=== PATIENT | female | born 1935 | race Caucasian/White ===

== ENCOUNTER 2019-01-22 09:15 | Inpatient (IN) | payer OTHER, MEDICARE ==
[~2019-01-22] VITALS: Ht 162.6 cm; Wt 84.8 kg
--- NOTE | 2019-01-22 09:15 | NUR ---
PATIENT BIBA TO BED 8 AT THIS TIME.
[2019-01-22 09:17] VITALS: BP 72/33
--- NOTE | 2019-01-22 09:18 | NUR ---
83 yo f biba care from home [facility] for fall. per pt, she was on the toilet and when she stood up, she felt light-headed and fell onto her right knee. denies hitting head/loc. pt w/ active GI bleed, still taking warfarin. pt pale and jaundiced. aaox4. hypotension, 72/. md notified. hx cardiac, htn, copd, a-fib, RT breast ca rx no med list given, only one received in report is warfarin
[2019-01-22] MEDS ORDERED: NACL 0.9% 1,000 ML IV SCH ×2 (09:54→12:30)
[2019-01-22 10:24] LABS: MEAN CORPUSCULAR HEMOGLOBIN 27 pg (27-31); MEAN CORPUSCULAR HGB CONC 31 g/dL (33-37); MEAN CORPUSCULAR VOLUME 85.3 fL (80-94); PLATELET COUNT (AUTO) 255 K/uL (140-450); RED CELL DISTRIBUTION WIDTH 15.1 % (11.6-13.7)
[2019-01-22] MEDS ORDERED: POTA8TER12 PO (10:25)
[2019-01-22] MEDS ORDERED: WARF1TAB PO (10:26)
[2019-01-22] MEDS ORDERED: SYN.1 PO (10:29)
[2019-01-22] MEDS ORDERED: METO50TE2 PO (10:30)
[2019-01-22] MEDS ORDERED: RAMI5CAP32 PO (10:31)
[2019-01-22] MEDS ORDERED: FURO-570 PO (10:33)
[2019-01-22] MEDS ORDERED: CARER90 PO (10:35)
[2019-01-22 10:38] LABS: APPEARANCE,URINE SL CLOUDY (CLEAR); BILIRUBIN,URINE 1+ (NEGATIVE); BLOOD, URINE 2+ (NEGATIVE); COLOR,URINE YELLOW (YELLOW); LEUKOCYTE ESTERASE ,URINE 1+ (NEGATIVE); NITRITE, URINE NEGATIVE (NEGATIVE); PH,URINE 5.5 (5.0-9.0); UGLUCOSE NEGATIVE (NEGATIVE)
[2019-01-22 10:45] LABS: ALBUMIN 2.2 g/dL (3.4-5.0); ANION GAP 8.4 (8-16); ASPARTATE AMINOTRANSFERASE 26 U/L (15-37); CARBON DIOXIDE 33.8 mmol/L (21-32); CHLORIDE 97 mmol/L (98-107); CREATININE 1.7 mg/dL (0.6-1.3); GLUCOSE 137 mg/dL (74-106); POTASSIUM 4.2 mmol/L (3.5-5.1); SODIUM SERUM 135 mmol/L (136-145); TOTAL BILIRUBIN 0.2 mg/dL (0.0-1.0)
[2019-01-22 10:47] LABS: UREA NITROGEN, BLOOD 89 mg/dL (7-18)
[2019-01-22 10:49] LABS: WHITE BLOOD COUNT (AUTO) 43.4 K/uL (4.8-10.8)
[2019-01-22 10:50] LABS: HEMATOCRIT 15.3 % (36-48); HEMOGLOBIN 4.8 g/dL (12.0-16.0)
[2019-01-22] MEDS ORDERED: LEVOFLOXACIN 500 MG TAB PO ONE (10:50)
[2019-01-22 10:54] LABS: HYALINE CASTS, URINE 0-10 /LPF (None Seen); URINE AMORPHOUS URATE 2+ /HPF (None Seen)
[2019-01-22 10:54] LABS: LYMPHOCYTES % (MANUAL) 2 % (20-46); METAMYELOCYTES % 3 % (0-0); MONOCYTES % (MANUAL) 8 % (5-12)
[2019-01-22 11:01] LABS: PROTHROMBIN TIME > 120.0 secs (10.8-13.4)
[2019-01-22] MEDS ORDERED: PHYTONADIONE 10 MG/ML AMP SUBQ ONE (11:10)
[2019-01-22] MEDS ORDERED: PHYTONADIONE 10 MG in NACL 0.9% 50 ML IV ONE (11:15)
[2019-01-22] MEDS ORDERED: ONDANSETRON 4 MG/2 ML VIAL IM/IVP PRN (11:55)
[2019-01-22] MEDS ORDERED: PIPERACILLIN/TAZOBACTAM 2.25 GM VIAL IV ONE (12:11)
[2019-01-22] MEDS ORDERED: PIPER/TAZO 2.25GM/D5W PREMIX 50 ML IV SCH ×2 (12:15→13:00)
[2019-01-22] MEDS ORDERED: DILTIAZEM 25 MG/5 ML VIAL IVP PRN (12:15)
[2019-01-22] MEDS ORDERED: PANTOPRAZOLE 80 MG in NACL 0.9% 100 ML IV SCH ×2 (12:15→12:30)
[2019-01-22] MEDS ORDERED: OCTREOTIDE ACETATE 1.25 MG in NACL 0.9% 250 ML IV SCH (12:30)
--- NOTE | 2019-01-22 12:40 | NUR ---
ADMITTED PT FROM ER BY MARK, PT PALE, AWAKE, ALERT. ON O2 NC 6L/MIN, O2 SATS 90%-95%. BEDSIDE MONITOR SHOWS SR, PT HYPOTENSIVE. ON 0.9% NS 1000 AT OPEN WIDE TO LEFT AC # 20 . INTACT AND PATENT. SKIN INTACT, DR. NOLAND AT BEDSIDE TO CHECK PT. PT C/O CHEST TIGHTNESS. HOB ELEVATED 30 DEGREES WITH LOW BED POSITION. CALL LIGHT IN REACH, WILL CONTINUE TO MONITOR.
--- NOTE | 2019-01-22 12:40 | NUR ---
Patient will be admitted to care of Dr Garcia. Admited to ICU 8. Report to ERIN Andrade.
[2019-01-22] MEDS ORDERED: [UNRECOGNIZED DRUG - CODE] PO (13:20)
[2019-01-22 13:22] LABS: MAGNESIUM 2.1 mg/dL (1.8-2.4); PHOSPHORUS 3.7 mg/dL (2.5-4.9); THYROID STIMULATING HORMONE 0.36 uIU/mL (0.34-3.74)
[2019-01-22] MEDS: metroNIDAZOLE 500 MG/NS PREMIX 100 ML IV SCH ×2 (13:45→20:30)
[2019-01-22 14:00] VITALS: BP 89/30
[2019-01-22] MEDS ORDERED: Z-GUARD PASTE TP SCH (14:00)
[2019-01-22] MEDS: DEXT 5% /NACL 0.9% 1,000 ML IV SCH (14:15)
[2019-01-22] MEDS ORDERED: ALBUTEROL SULFATE/IPRATROPIU 3 ML SOL IH PRN (14:20)
--- NOTE | 2019-01-22 15:00 | NUR ---
STARTED FRESH FROZEN PLASMA TRANSFUSION , NO REACTION NOTED. DETAILS SEE BLOOD TRANSFUSION RECORD.
[2019-01-22 16:10] VITALS: BP 85/58
--- NOTE | 2019-01-22 16:12 | NUR ---
DOUBLE CHECKED WITH IS IT OK TO PUT IV TO RIGHT ARM. STATED IT IS FINE. CHARGE NURSE MADE AWARE.
[2019-01-22 16:23] LABS: MEAN CORPUSCULAR HEMOGLOBIN 27 pg (27-31); MEAN CORPUSCULAR HGB CONC 32 g/dL (33-37); PLATELET COUNT (AUTO) 233 K/uL (140-450); RED BLOOD CELL COUNT(AUTO) 1.76 MIL/uL (4.20-5.40); RED CELL DISTRIBUTION WIDTH 14.7 % (11.6-13.7)
[2019-01-22 16:31] LABS: HEMATOCRIT 14.9 % (36-48); HEMOGLOBIN 4.7 g/dL (12.0-16.0); WHITE BLOOD COUNT (AUTO) 50.1 K/uL (4.8-10.8)
[2019-01-22 17:24] LABS: LYMPHOCYTES % (MANUAL) 2 % (20-46)
[2019-01-22 17:25] LABS: MONOCYTES % (MANUAL) 4 % (5-12); PROMYELOCYTES % 2 % (0-0)
[2019-01-22 17:41] VITALS: BP 101/56
[2019-01-22] MEDS: SENNA 8.6 MG TAB PO SCH (18:35)
--- NOTE | 2019-01-22 19:15 | NUR ---
RED BLOOD CELLS AND FRESH FROZEN PLASMA 2 UNITS GIVEN IN MY SHIFT. DETAILS SEE RECORD. HANGED THE SECOND BAG RED BLOOD CELLS AT 1815, TRANSFUSION STILL IN PROCESS, NO REACTION NOTED, REPORT GIVEN TO PM NURSE. VITALS STABLE AT THIS TIME. PT AWAKE,. ALERT.
--- NOTE | 2019-01-22 19:30 | NUR ---
RECEIVED BEDSIDE REPORT FROM MORNING SHIFT NURSE. PT IS AAOX4, FOLLOW COMMANDS AND ABLE TO MAKE NEEDS KNOWN. SINUS RHYTHM ON MONITOR, S1 S2 HEARD. PT IS ON O2 AT 2 LPM/NC. LUNG SOUNDS CLEAR BILATERALLY. BREATHING EVEN AND UNLABORED. DENIES SOB OR CHEST PAIN. ABDOMEN SOFT, NONDISTENDED, NONTENDER W/ ACTIVE BOWEL SOUNDS. PERIPHERAL IVS G20 TO LEFT AND RIGHT AC AND G22 TO LEFT HAND ASYMPTOMATIC, PATENT AND INTACT. PT RECEIVING IVF D5NS AT 10ML/HR. AMAYA CATH IN PLACE DRAINING CLEAR YELLOW URINE TO GRAVITY DRAINAGE BAG. SKIN INTACT, DRY AND WARM TO TOUCH. AFEBRILE, DENIES PAIN. HOB ELEVATED 30 DEGREES, BED IN LOWEST POSITION LOCKED AND CALL LIGHT WITHIN REACH. NEEDS WELL ATTENDED. NO ACUTE DISTRESS NOTED. WILL CONTINUE TO MONITOR.
[2019-01-22 20:00] VITALS: BP 90/35
--- NOTE | 2019-01-22 20:10 | NUR ---
BLOOD TRANSFUSION COMPLETED. NO ADVERSE REACTIONS NOTED. WILL CONTINUE TO MONITOR.
[2019-01-22] MEDS: PANTOPRAZOLE 40 MG INJ VIAL IVP SCH (20:30)
[2019-01-22] MEDS: ACETAMINOPHEN 325 MG TAB PO PRN (20:30)
--- NOTE | 2019-01-22 20:50 | NUR ---
MEDICATIONS ADMINISTERED ORDERED. PT TOLERATED WELL.
[2019-01-22 22:00] VITALS: BP 91/41
[2019-01-22] MEDS: IPRATROPIUM 0.02% 0.5 MG/2.5 ML NEBU INH PRN (22:36)
[2019-01-22 22:43] LABS: MEAN CORPUSCULAR HEMOGLOBIN 28 pg (27-31); MEAN CORPUSCULAR HGB CONC 32 g/dL (33-37); MEAN CORPUSCULAR VOLUME 85.8 fL (80-94); PLATELET COUNT (AUTO) 176 K/uL (140-450); RED BLOOD CELL COUNT(AUTO) 2.34 MIL/uL (4.20-5.40); RED CELL DISTRIBUTION WIDTH 14.6 % (11.6-13.7)
[2019-01-22 22:54] LABS: PROTHROMBIN TIME 13.8 secs (10.8-13.4)
[2019-01-22 23:22] LABS: HEMATOCRIT 20.1 % (36-48); HEMOGLOBIN 6.5 g/dL (12.0-16.0); WHITE BLOOD COUNT (AUTO) 39.4 K/uL (4.8-10.8)
[2019-01-22 23:23] LABS: LYMPHOCYTES % (MANUAL) 5 % (20-46); METAMYELOCYTES % 2 % (0-0); MONOCYTES % (MANUAL) 5 % (5-12)
[2019-01-23] VITALS (12 sets, daily range): BP systolic 92–136; BP diastolic 40–61
[2019-01-23] MEDS ORDERED: FUROSEMIDE 20 MG TAB PO SCH
--- NOTE | 2019-01-23 00:05 | NUR ---
BENADRYL ADMINISTERED ORDERED. TYLENOL NOT GIVEN. DR. OZUNA AWARE.
--- NOTE | 2019-01-23 00:16 | NUR ---
THIRD UNIT OF PRBC STARTED. PT'S VITAL SIGNS STABLE AT THIS TIME. AFEBRILE. WILL CONTINUE TO MONITOR.
--- NOTE | 2019-01-23 01:50 | NUR ---
BLOOD TRANSFUSION COMPLETED. PT IS AFEBRILE, VSS. NO ADVERSE REACTION NOTED. WILL CONTINUE TO MONITOR.
[2019-01-23] MEDS: ACETAMINOPHEN 325 MG TAB PO PRN ×2 (02:31→09:49)
[2019-01-23] MEDS: ACETAMINOPHEN 325 MG TAB PO SCH ×2 (03:59)
--- NOTE | 2019-01-23 04:00 | NUR ---
BENADRYL AND TYLENOL NOT GIVEN AT THIS TIME. DR. OZUNA AWARE.
[2019-01-23] MEDS: metroNIDAZOLE 500 MG/NS PREMIX 100 ML IV SCH ×3 (05:11→20:24)
[2019-01-23] MEDS: LEVOTHYROXINE 0.1 MG TAB PO SCH (05:39)
--- NOTE | 2019-01-23 06:08 | NUR ---
CLEANED AND REPOSITIONED PT. PT'S VITAL SIGNS ARE STABLE. NO ACUTE DISTRESS NOTED AT THIS TIME. SAFETY PRECAUTIONS IN PLACE. WILL CONTINUE TO MONITOR.
[2019-01-23 06:09] LABS: BASOPHILS % (AUTO) 0.1 % (0.0-2.0); EOSINOPHILS % (AUTO) 0.1 % (0.0-4.0); HEMATOCRIT 22.3 % (36-48); HEMOGLOBIN 7.3 g/dL (12.0-16.0); LYMPHOCYTES # (AUTO) 2.1 K/uL (2.5-16.5); LYMPHOCYTES % (AUTO) 6.5 % (20.5-51.1); MEAN CORPUSCULAR HEMOGLOBIN 28 pg (27-31); MEAN CORPUSCULAR HGB CONC 33 g/dL (33-37); MEAN CORPUSCULAR VOLUME 87.1 fL (80-94); MONOCYTES # (AUTO) 1.8 K/uL (0.8-1.0); MONOCYTES % (AUTO) 5.6 % (1.7-9.3); NEUTROPHILS # (AUTO) 28.6 K/uL (1.8-7.7); NEUTROPHILS % (AUTO) 87.7 % (42.2-75.2); PLATELET COUNT (AUTO) 148 K/uL (140-450); RED BLOOD CELL COUNT(AUTO) 2.55 MIL/uL (4.20-5.40); RED CELL DISTRIBUTION WIDTH 14.8 % (11.6-13.7)
--- NOTE | 2019-01-23 06:36 | NUR ---
DR. SANTIZO IN TO SEE AND EXAMINE PT. UPDATES GIVEN ON PT'S CONDITION. WILL FOLLOW UP ON ORDERS.
[2019-01-23 06:37] LABS: WHITE BLOOD COUNT (AUTO) 32.6 K/uL (4.8-10.8)
[2019-01-23 06:46] LABS: ANION GAP 6.5 (8-16); CARBON DIOXIDE 34.7 mmol/L (21-32); CHLORIDE 99 mmol/L (98-107); CREATININE 1.6 mg/dL (0.6-1.3); GLUCOSE 127 mg/dL (74-106); MAGNESIUM 2.1 mg/dL (1.8-2.4); PHOSPHORUS 3.7 mg/dL (2.5-4.9); POTASSIUM 4.2 mmol/L (3.5-5.1); SODIUM SERUM 136 mmol/L (136-145)
[2019-01-23 06:50] LABS: UREA NITROGEN, BLOOD 69 mg/dL (7-18)
[2019-01-23 06:58] LABS: PROTHROMBIN TIME 12.4 secs (10.8-13.4)
--- NOTE | 2019-01-23 07:28 | NUR ---
REPORT GIVEN TO MORNING SHIFT RN FOR CONTINUITY OF CARE. PT IS IN STABLE CONDITION.
--- NOTE | 2019-01-23 08:00 | NUR ---
PATIENT IN BED, HEAD UP 30 DEGREES, ALERT ORIENTED TO PERSON, TIME, PLACE SITUATION. ON NASAL CANNULA O2 2L/MIN. SO2 95%, ATRIAL FIBRILLATION (CHRONIC) 98BPM, SOFT ABDOMEN, NO SIGNS OF BLEEDING AT THE MOMENT, WITH AMAYA CATHETER NOTED CLEAR YELLOW URINE IN THE UROBAG, SKIN INTACT, MILD REDDISH DISCOLORATION AT RIGHT FEMORAL AREA, PERIPHERAL LINES: GAUGE 2O AT RIGHT ANTECUBITAL-D5NS 10CC/HR INFUSING, GAUGE 22 LEFT HAND-SALINE LOCKED, GAUGE 20 LEFT ANTECUBITAL-SALINE LOCKED, ALL IV SITES ASYMPTOMATIC. CALL MASON WITHIN REACH
--- NOTE | 2019-01-23 08:20 | NUR ---
ROUNDS WITH DR. RUSSELL, DR. SANTIZO. KEEP PATIENT NPO PER PHYSICIANS
[2019-01-23] MEDS: PANTOPRAZOLE 40 MG INJ VIAL IVP SCH (08:35)
[2019-01-23] MEDS: SENNA 8.6 MG TAB PO SCH ×4 (08:36→18:36)
--- NOTE | 2019-01-23 10:40 | NUR ---
DR. ROACH AT BEDSIDE
[2019-01-23] MEDS ORDERED: fentaNYL 0.05 MG/ML VIAL ONE (12:10)
[2019-01-23 12:11] LABS: FOLIC ACID 14.4 ng/mL (>3.0)
[2019-01-23] MEDS ORDERED: diphenhydrAMINE 50 MG/ML VIAL ONE (12:11)
[2019-01-23] MEDS ORDERED: MIDAZOLAM 2 MG/2 ML VIAL ONE (12:11)
--- NOTE | 2019-01-23 12:47 | NUR ---
DR. DIAZ AT BEDSIDE FOR EGD
[2019-01-23] MEDS ORDERED: PROBIOTIC SCREEN 1 EA MISC MC PRN (13:10)
[2019-01-23] MEDS ORDERED: fentaNYL 0.05 MG/ML VIAL IVP SCH (13:40)
[2019-01-23] MEDS ORDERED: GLUCAGON 1 MG VIAL IVP SCH (13:40)
[2019-01-23] MEDS ORDERED: MIDAZOLAM 2 MG/2 ML VIAL IVP ONE (13:40)
--- NOTE | 2019-01-23 13:47 | NUR ---
EGD DONE. PATIENT DROWSY BUT OPENS EYES TO VOICE AND FOLLOWS COMMANDS. VITAL SIGNS STABLE
[2019-01-23] MEDS ORDERED: GLUCAGON 1 MG VIAL ONE (13:53)
[2019-01-23] MEDS ORDERED: MIDAZOLAM 2 MG/2 ML VIAL IVP SCH (13:59)
[2019-01-23 14:51] LABS: HEMATOCRIT 22.9 % (36-48); HEMOGLOBIN 7.5 g/dL (12.0-16.0); MEAN CORPUSCULAR HEMOGLOBIN 29 pg (27-31); MEAN CORPUSCULAR HGB CONC 33 g/dL (33-37); MEAN CORPUSCULAR VOLUME 87.4 fL (80-94); PLATELET COUNT (AUTO) 147 K/uL (140-450); RED BLOOD CELL COUNT(AUTO) 2.63 MIL/uL (4.20-5.40); RED CELL DISTRIBUTION WIDTH 14.9 % (11.6-13.7)
[2019-01-23] MEDS: DEXT 5% /NACL 0.9% 1,000 ML IV SCH (14:54)
[2019-01-23] MEDS: HYDROcodone/APAP 5/325 MG 1 TAB TAB PO PRN ×2 (14:55→21:21)
--- NOTE | 2019-01-23 15:17 | NUR ---
DECREASE FIO2 TO 2L SPO2 98
[2019-01-23 15:36] LABS: WHITE BLOOD COUNT (AUTO) 33.3 K/uL (4.8-10.8)
[2019-01-23 16:24] LABS: LYMPHOCYTES % (MANUAL) 1 % (20-46); METAMYELOCYTES % 3 % (0-0); MONOCYTES % (MANUAL) 2 % (5-12)
--- NOTE | 2019-01-23 16:38 | NUR ---
PM CARE, CATHETER CARE RENDERED. PATIENT TOLERATED
--- NOTE | 2019-01-23 17:10 | NUR ---
PATIENT'S DAUGHTER AT BEDSIDE. ATTEMPTED TO CONTACT DR. SANTIZO BUT NO ANSWER. ICU CN AWARE
--- NOTE | 2019-01-23 18:15 | NUR ---
XRAY RAILWAY SIGNAL TECHNICIAN AT BEDSIDE FOR PELVIC XRAY
--- NOTE | 2019-01-23 18:54 | NUR ---
SPOKE TO DR. DIAZ OVER THE PHONE AND HE IS NOT PLANNING TO DO COLONOSCOPY AND MAY DOWNGRADE PATIENT TO TELEMETRY. DR. MONTEZ INFORMED
--- NOTE | 2019-01-23 19:36 | NUR ---
BSSR RECEIVED FROM ERIN BRYSON. PT STABLE WITH GCS OF 15. BREATHING NORMALLY ON NC AT 2L O2. AFIB ON THE MONITOR, ABLE TO SWALLOW, ON FULL LIQUID DIET. IV SITES ARE INTACT AND PATENT, D5 NS AT 50ML/HR RUNNING. AMAYA CATHETER INTACT AND DRAINING WELL. NO BOWEL MOVEMENT, WILL CONTINUE TO MONITOR CLOSELY.
[2019-01-23] MEDS: NACL 0.9% 1,000 ML IV SCH (20:24)
--- NOTE | 2019-01-23 22:00 | NUR ---
VSS, PT ASLEEP, NO S/S OF ANY DISTRESS. WILL CONTINUE TO MONITOR CLOSELY.
[2019-01-24] VITALS (10 sets, daily range): BP systolic 112–130; BP diastolic 51–67
--- NOTE | 2019-01-24 00:05 | NUR ---
PT COMFORTABLE, ASLEEP, WILL CONTINUE TO MONITOR CLOSELY
[2019-01-24] MEDS ORDERED: PIPERACILLIN/TAZOBACTAM 2.25 GM VIAL IV ONE (00:37)
[2019-01-24] MEDS: PIPER/TAZO 2.25GM/D5W PREMIX 50 ML IV SCH ×5 (00:49→23:52)
--- NOTE | 2019-01-24 03:19 | NUR ---
VSS, PT ASLEEP, NO S/S OF ANY DISTRESS. WILL CONTINUE TO MONITOR CLOSELY.
[2019-01-24] MEDS: metroNIDAZOLE 500 MG/NS PREMIX 100 ML IV SCH ×3 (05:32→20:46)
[2019-01-24] MEDS: LEVOTHYROXINE 0.1 MG TAB PO SCH (05:33)
[2019-01-24 06:30] LABS: HEMATOCRIT 22.3 % (36-48); HEMOGLOBIN 7.4 g/dL (12.0-16.0); MEAN CORPUSCULAR HEMOGLOBIN 29 pg (27-31); MEAN CORPUSCULAR HGB CONC 33 g/dL (33-37); PLATELET COUNT (AUTO) 153 K/uL (140-450); RED BLOOD CELL COUNT(AUTO) 2.53 MIL/uL (4.20-5.40); WHITE BLOOD COUNT (AUTO) 28.2 K/uL (4.8-10.8)
--- NOTE | 2019-01-24 06:41 | NUR ---
PATIENT HAS BEEN SCREENED AND CATEGORIZED MODERATE NUTRITION RISK. PATIENT WILL BE SEEN WITHIN 3-5 DAYS OF ADMISSION. 01/25/19-01/27/19 JOSH ANGUIANO MS, RDN
[2019-01-24 07:17] LABS: ANION GAP 6.2 (8-16); CARBON DIOXIDE 35.5 mmol/L (21-32); CHLORIDE 103 mmol/L (98-107); GLUCOSE 110 mg/dL (74-106); POTASSIUM 3.7 mmol/L (3.5-5.1); SODIUM SERUM 141 mmol/L (136-145); UREA NITROGEN, BLOOD 31 mg/dL (7-18)
[2019-01-24 07:36] LABS: MAGNESIUM 2.1 mg/dL (1.8-2.4); PHOSPHORUS 2.8 mg/dL (2.5-4.9)
--- NOTE | 2019-01-24 07:36 | NUR ---
BSSR GIVEN TO ERIN VIVEROS. VSS, GCS OF 15.
[2019-01-24 07:53] LABS: BASOPHILS % (MANUAL) 0 % (0-2); EOSINOPHILS % (MANUAL) 1 % (0-4); LYMPHOCYTES % (MANUAL) 3 % (20-46); MONOCYTES % (MANUAL) 7 % (5-12)
--- NOTE | 2019-01-24 08:00 | NUR ---
AWAKE AND ALERT. RESPONDS APPROPRIATELY TO QUESTIONS. IV 0.9 NS INFUSING AT 50 ML/HR OVER RT AC IV SITE. USER EXPERIENCE TEAM LEAD SHOWS A FIB HR 93/MIN. AMAYA CATH. INTACT AND PATENT DRAINING SL. CLOUDY LIGHT REBECCA URINE. DENIES ANY DISCOMFORTS AT THIS TIME. RR 33/MIN. DENIES ANY SOB. 02 AT 2L/MIN/NC. 02 SAT. 95%. HOB ELEVATED 45 DEGREES.
--- NOTE | 2019-01-24 08:10 | NUR ---
BREAKFAST SERVED. REFUSED TO EAT. JUST DRANK WATER. NO N/V. NO DIFFICULTY IN SWALLOWING NOTED.
[2019-01-24] MEDS: PANTOPRAZOLE 40 MG INJ VIAL IVP SCH (08:40)
[2019-01-24] MEDS: SENNA 8.6 MG TAB PO SCH ×3 (08:41→17:29)
--- NOTE | 2019-01-24 11:00 | NUR ---
DR. ROACH HERE TO SEE AND EXAMINE PT.
--- NOTE | 2019-01-24 12:00 | NUR ---
LUNCH SERVED. FED PT. ATE 1/2 BOWL OF [place] OUP. REFUSED TO EAT ANYMORE.
--- NOTE | 2019-01-24 14:00 | NUR ---
ASSISTED IN REPOSITIONING SELF IN BED. AMAYA CARE DONE. SHAMPOOED HAIR.
[2019-01-24] MEDS: NACL 0.9% 1,000 ML IV SCH (14:05)
--- NOTE | 2019-01-24 16:00 | NUR ---
FED PT JELLO ATE ONLY HALF A CUP.
--- NOTE | 2019-01-24 16:30 | NUR ---
DAUGHTER VISITING AT BEDSIDE. UPDATED ON PT'S CONDITION.
--- NOTE | 2019-01-24 17:13 | NUR ---
C/O FEELING LIKE HER LUNGS ARE NOT "OPENING UP". 02 SAT 88 TO 89%. ASKING FOR BREATHING TREATMENT.
[2019-01-24] MEDS: IPRATROPIUM 0.02% 0.5 MG/2.5 ML NEBU INH PRN (17:14)
--- NOTE | 2019-01-24 17:14 | NUR ---
RT AT BEDSIDE. BREATHING RX GIVEN. FELT AFTER.
--- NOTE | 2019-01-24 17:30 | NUR ---
HOB ELEVATED. FED DINNER. ASSISTED BY DAUGHTER. ATE ONLY 10%.
--- NOTE | 2019-01-24 18:00 | NUR ---
REMAINS IN A FIB, HR 97/MIN. DENIES ANY SOB.
--- NOTE | 2019-01-24 19:15 | NUR ---
REPORT GIVEN TO ERIN HARRIS.
--- NOTE | 2019-01-24 19:30 | NUR ---
RECEIVED REPORT FROM ERIN VIVEROS. INITIAL ASSESSMENT COMPLETED. PT ASLEEP AT THIS TIME. O2@ 2LPM VIA NASAL CANNULA. ATTACHED TO SEWING MACHINE ASSEMBLER, PULSE OXIMETER. NO SIGNS OF LABOR BREATHING. IV ACCESS AT RIGHT AC , LEFT AC SALINE LOCK, PATENT, INTACT. SCDS IN PLACE, AMAYA CATH IN PLACE. BED IN LOW POSITION. SAFETY MEASURE ENSURE. CALL LIGHT WITHIN REACH. WILL CONTINUE TO MONITOR.
--- NOTE | 2019-01-24 20:45 | NUR ---
DUE MEDS GIVEN ORDERED. NO SIGNS OF DISTRESS.
[2019-01-24] MEDS: HYDROcodone/APAP 5/325 MG 1 TAB TAB PO PRN (20:46)
--- NOTE | 2019-01-24 21:33 | NUR ---
KATIE, DAUGHTER, INFORMED BY CHARGE NURSE ZULEYKA OF PATIENT'S TRANSFER TO TELEMETRY UNIT 124-B.
--- NOTE | 2019-01-24 21:40 | NUR ---
PT MOVED OUT FROM ICU TO TELEMETRY UNIT.
--- NOTE | 2019-01-24 21:45 | NUR ---
RECEIVED PT A TRANSFER FROM ICU. REPORT GIVEN BY DIRECTOR GLOBAL STRATEGIC PUBLISHER SALES. CAME BY BED. .AWAKE,ALERT AND ORIENTED X4. BEDREST. ON TELE MONITOR. NO C/O ANY DISCOMFORT NOR PAIN NOTED. ON O22L/NC. O2 SAT 92%. WITH IV ACCESS ON RT AC AND LT AC BOTH G20. FLUSHED WITH NS 10 ML, CLEAR AND PATENT. . WITH BLE SCD. AMAYA CATHETER IN PLACED. POSITIONED FOR COMFORT. PLAN OF CARE DISCUSSED AND VERBALIZED UNDERSTANDING. CAME WITH EYEGLASSES AND DENTURES UPPER AND LOWER. BED ON LOWEST POSITION. CALL LIGHT WITHIN EASY REACH. WILL CONTINUE TO MONITOR.
--- NOTE | 2019-01-24 21:45 | NUR ---
PT ARRIVED IN TELE, RM 124-B, IN STABLE CONDITION. NO SIGNS OF DISTRESS. REPORT GIVEN TO ERIN MOREL.
[2019-01-25] VITALS (7 sets, daily range): BP systolic 109–126; BP diastolic 49–56
--- NOTE | 2019-01-25 02:00 | NUR ---
PT ASLEEP. NO S/S OF ANY DISCOMFORT NOTED.
[2019-01-25] MEDS: metroNIDAZOLE 500 MG/NS PREMIX 100 ML IV SCH ×3 (04:47→21:15)
[2019-01-25] MEDS: PIPER/TAZO 2.25GM/D5W PREMIX 50 ML IV SCH ×4 (05:30→23:33)
[2019-01-25] MEDS: LEVOTHYROXINE 0.1 MG TAB PO SCH (05:35)
[2019-01-25] MEDS: HYDROcodone/APAP 5/325 MG 1 TAB TAB PO PRN ×2 (06:02→23:34)
[2019-01-25 06:33] LABS: ANION GAP 6.7 (8-16); CARBON DIOXIDE 34.5 mmol/L (21-32); CHLORIDE 98 mmol/L (98-107); GLUCOSE 103 mg/dL (74-106); POTASSIUM 3.2 mmol/L (3.5-5.1); SODIUM SERUM 136 mmol/L (136-145); UREA NITROGEN, BLOOD 15 mg/dL (7-18)
[2019-01-25 06:39] LABS: MAGNESIUM 1.9 mg/dL (1.8-2.4); PHOSPHORUS 3.1 mg/dL (2.5-4.9)
[2019-01-25 06:42] LABS: HEMATOCRIT 21.7 % (36-48); HEMOGLOBIN 7.3 g/dL (12.0-16.0); MEAN CORPUSCULAR HEMOGLOBIN 29 pg (27-31); MEAN CORPUSCULAR HGB CONC 34 g/dL (33-37); MEAN CORPUSCULAR VOLUME 87.6 fL (80-94); PLATELET COUNT (AUTO) 140 K/uL (140-450); RED BLOOD CELL COUNT(AUTO) 2.48 MIL/uL (4.20-5.40); RED CELL DISTRIBUTION WIDTH 15.3 % (11.6-13.7); WHITE BLOOD COUNT (AUTO) 23.9 K/uL (4.8-10.8)
--- NOTE | 2019-01-25 06:50 | NUR ---
IV ACCESS ON LT AC SWOLLEN,INFILTRATED. DISCONTINUED. TRIED TO RESTART A NEW IV ACCESS BUT FAILED. SAGE HAS ANOTHER IV ACCESS ON THE RT AC FROM ICU. WILL TRY TO USE THIS IF UNABLE TO GET ON THE LT ARM.
--- NOTE | 2019-01-25 07:25 | NUR ---
RECEIVED REPORT FROM PATTERNATOR NURSE FOR CONTINUITY OF CARE. PT IN STABLE CONDITION. RESPIRATIONS EVEN AND UNLABORED. IV INTACT AND PATENT. SAFETY MEASURES IN PLACE AND PATENT. BED IN LOW POSITION. BED ALARM ON. WILL CONTINUE TO MONITOR.
--- NOTE | 2019-01-25 07:25 | NUR ---
ENDORSED PT IN STABLE CONDITION TO AM NURSE.
[2019-01-25 07:26] LABS: EOSINOPHILS % (MANUAL) 2 % (0-4); LYMPHOCYTES % (MANUAL) 4 % (20-46); MONOCYTES % (MANUAL) 9 % (5-12)
[2019-01-25] MEDS ORDERED: DEXT 5% / NACL 0.45% 1,000 ML IV SCH (07:50)
--- NOTE | 2019-01-25 08:55 | NUR ---
PT DAUGHTER KATIE CALLED TO CHECK STATUS OF MOTHER. PT VERBALIZED TO GIVE INFORMATION TO DAUGHTER. ALL QUESTIONS ANSWERED AT THIS TIME.
--- NOTE | 2019-01-25 09:34 | NUR ---
DAUGHTER CHARLES CALLED TO INFORM THAT PT HAS A RECORD OF COLONOSCOPY IN 2006 BUT NO HARD RECORD FOR 2017.
[2019-01-25] MEDS: PANTOPRAZOLE 40 MG INJ VIAL IVP SCH (09:59)
[2019-01-25] MEDS: DILTIAZEM 120 MG CAPER PO SCH (09:59)
[2019-01-25] MEDS: SENNA 8.6 MG TAB PO SCH ×3 (09:59→17:11)
--- NOTE | 2019-01-25 10:08 | NUR ---
REPOSITIONED, PT TOLERATED WELL. CALL LIGHT AT BEDSIDE. BED IN LOW POSITION. BED ALARM ON. WILL CONTINUE TO MONITOR.
--- NOTE | 2019-01-25 11:24 | NUR ---
OFF UNIT FOR CT PELVIS W/O CONTRAST. PT IN STABLE CONDITION.
--- NOTE | 2019-01-25 11:41 | NUR ---
PT BACK ON UNIT IN STABLE CONDITION. BED IN LOW POSITION. CALL LIGHT AT BEDSIDE. WILL CONTINUE TO MONITOR.
--- NOTE | 2019-01-25 13:33 | NUR ---
REPOSITIONED, PT TOLERATED WELL. CALL LIGHT AT BEDSIDE. BED IN LOW POSITION. BED ALARM ON. WILL CONTINUE TO MONITOR.
[2019-01-25] MEDS ORDERED: NACL 0.9% 1,000 ML IV SCH (14:13)
[2019-01-25] MEDS: ACETAMINOPHEN 325 MG TAB PO PRN (14:52)
[2019-01-25] MEDS ORDERED: POTASSIUM CHLORIDE 10 MEQ TABER PO SCH (15:00)
--- NOTE | 2019-01-25 17:36 | NUR ---
AMAYA REMOVED AT THIS TIME. PT TOLERATED WELL. WILL CONTINUE TO MONITOR. BED IN LOW POSITION. CALL LIGHT AT BEDSIDE. BED ALARM ON.
[2019-01-25] MEDS ORDERED: FUROSEMIDE 20 MG/2 ML VIAL IVP SCH (18:10)
[2019-01-25] MEDS ORDERED: POTASSIUM CHLORIDE 20% 40 MEQ/15 ML UDC GT SCH (18:30)
[2019-01-25] MEDS ORDERED: SODIUM FERRIC GLUCONATE 125 MG in NACL 0.9% 100 ML IV SCH (19:00)
--- NOTE | 2019-01-25 19:33 | NUR ---
WILL ENDORSE TO WIND TURBINE ERECTOR NURSE FOR CONTINUITY OF CARE. PT IN STABLE CONDITION.
--- NOTE | 2019-01-25 19:35 | NUR ---
RECEIVED FROM AM RN IN BED SITTING UP WITH DAUGHTER ROCHELLE VISITING. CARE PLANS FOR THE NIGHT DISCUSSED WITH THEM. CALL LIGHT WITH IN REACH. BED ALARM ON. PER ROCHELLE/DAUGHTER NO TO COLONOSCOPY PLANS. PT. ALSO REPEATED AND STATED NO TO THE PROCEDURE FOR HER BECAUSE SHE IS WEAK AT THIS TIME. DAUGHTER AND PT. AGREED TO A NO DECISION. PT. NOTED ABLE TO INVOLVE SELF IN DISCUSSION WELL. ENCOURAGED TO CALL FOR ANY HELP SHE MAY NEED OR IF IN PAIN. NEEDS WILL BE ANTICIPATED AND WILL BE MET. PT. POSITIONED Q 2H WITH PILLOW SUPPORT TO PRESSURE AREAS.
--- NOTE | 2019-01-25 21:56 | NUR ---
PT. TURNED TO SIDES BY CNAS. PT. CLEAN,DRY AND COMFORTABLE. PILLOW SUPPORT TO PRESSURE AREAS IN PLACE. PT. DAUGHTER LEFT. NEEDS WILL BE ANTICIPATED AND WILL BE MET. BED ALARM ON. CALL LIGHT AT BEDSIDE. IVF SITE TO RAC INTACT AND NO INFILTRATION NOTED. GOOD BLOOD RETURN.
[2019-01-25] MEDS: IPRATROPIUM 0.02% 0.5 MG/2.5 ML NEBU INH PRN (23:10)
--- NOTE | 2019-01-25 23:18 | NUR ---
PT. AWAKE AT THIS TIME. VITAL SIGNS TAKEN. REQUESTED FOR BREATHING TREATMENT. CALLED RESPIRATORY THERAPIST AKIKO. AWARE OF PT. REQUEST.
--- NOTE | 2019-01-26 02:00 | NUR ---
PT. TURNED BY CNAS. REFUSING TO BE TURNED BUT EXPLAINED NEED . PILLOW SUPPORT TO PRESSURE AREAS. ON TELEMETRY MONITORING. WENT BACK TO SLEEP AFTER TURNING AND KEPT CLEAN AND DRY.
--- NOTE | 2019-01-26 03:57 | NUR ---
SLEEPING . TELEMETRY MONITORING. NO RESTLESSNESS NOTED.
[2019-01-26 04:36] VITALS: BP 112/52
[2019-01-26] MEDS: PIPER/TAZO 2.25GM/D5W PREMIX 50 ML IV SCH ×2 (04:57→12:00)
[2019-01-26] MEDS: metroNIDAZOLE 500 MG/NS PREMIX 100 ML IV SCH ×2 (05:47→13:00)
[2019-01-26] MEDS: LEVOTHYROXINE 0.1 MG TAB PO SCH (05:55)
--- NOTE | 2019-01-26 05:55 | NUR ---
AM HYGIENE RENDERED BY CNAS. NO COMPLAINTS VERBALIZED. TURNED TO SIDES Q 2H WITH PILLOW SUPPORT TO PRESSURE AREAS. NO ADVERSE REACTIONS TO IV ABT ADMINISTERED THIS SHIFT.
[2019-01-26] MEDS: IPRATROPIUM 0.02% 0.5 MG/2.5 ML NEBU INH PRN (06:46)
[2019-01-26 06:50] LABS: PROTHROMBIN TIME 14.2 secs (10.8-13.4)
[2019-01-26 06:54] LABS: MEAN CORPUSCULAR HEMOGLOBIN 29 pg (27-31); MEAN CORPUSCULAR HGB CONC 33 g/dL (33-37); MEAN CORPUSCULAR VOLUME 88.6 fL (80-94); PLATELET COUNT (AUTO) 135 K/uL (140-450); RED BLOOD CELL COUNT(AUTO) 2.31 MIL/uL (4.20-5.40); RED CELL DISTRIBUTION WIDTH 16.2 % (11.6-13.7); WHITE BLOOD COUNT (AUTO) 16.2 K/uL (4.8-10.8)
[2019-01-26 06:55] LABS: ANION GAP 6.4 (8-16); CARBON DIOXIDE 34.4 mmol/L (21-32); CHLORIDE 103 mmol/L (98-107); GLUCOSE 102 mg/dL (74-106); POTASSIUM 3.8 mmol/L (3.5-5.1); SODIUM SERUM 140 mmol/L (136-145); UREA NITROGEN, BLOOD 11 mg/dL (7-18)
[2019-01-26 06:58] LABS: PHOSPHORUS 3.3 mg/dL (2.5-4.9)
[2019-01-26] MEDS ORDERED: APIX5TAB PO (07:00)
[2019-01-26] MEDS ORDERED: FURO20TA8 PO (07:00)
--- NOTE | 2019-01-26 07:15 | NUR ---
RECEIVED REPORT FROM CORROSION PREVENTION METAL SPRAYER NURSE. PT IN STABLE CONDITION. RESPIRATION EVEN AND UNLABORED. IV INTACT AND PATENT. SAFETY MEASURES IN PLACE. BED IN LOW POSITION, CALL LIGHT AT BEDSIDE, BED ALARM ON. WILL CONTINUE TO MONITOR.
--- NOTE | 2019-01-26 07:47 | NUR ---
CRITICAL LAB RECEIVED. HGB 6.7, HCT 20.5. DR. HENDERSON INFORMED ORDERS FOR BLOOD TRANSFUSION PLACED.
[2019-01-26 07:48] LABS: HEMATOCRIT 20.5 % (36-48); HEMOGLOBIN 6.7 g/dL (12.0-16.0)
[2019-01-26 07:49] LABS: EOSINOPHILS % (MANUAL) 2 % (0-4); LYMPHOCYTES % (MANUAL) 3 % (20-46); MONOCYTES % (MANUAL) 6 % (5-12)
[2019-01-26 08:00] VITALS: BP 105/48
--- NOTE | 2019-01-26 08:21 | NUR ---
CONSENT FOR BLOOD TRANSFUSION VERBAL OVER THE PHONE WITH DAUGHTER KATIE , VERIFIED WITH SITAL R.N. CONSENT WAS GIVEN AT THIS TIME.
[2019-01-26] MEDS ORDERED: RAMIPRIL 5 MG CAP PO SCH (09:00)
[2019-01-26] MEDS ORDERED: POTASSIUM CHLORIDE 8 MEQ TABER PO SCH (09:00)
[2019-01-26] MEDS ORDERED: APIXABAN 2.5 MG TAB PO SCH (09:00)
[2019-01-26] MEDS: DILTIAZEM 120 MG CAPER PO SCH (09:00)
[2019-01-26] MEDS ORDERED: FUROSEMIDE 40 MG TAB PO SCH (09:00)
[2019-01-26] MEDS ORDERED: METOPROLOL SUCCINATE 50 MG TABER PO SCH (09:00)
--- NOTE | 2019-01-26 09:00 | NUR ---
GAVE ORDERED MEDICATIONS AT THIS TIME. PT TOLERATED WELL. PT IN STABLE CONDITION. RESPIRATIONS EVEN AND UNLABORED. BED IN LOW POSITION. CALL LIGHT AT BEDSIDE. BED ALARM ON. WILL CONTINUE TO MONITOR.
[2019-01-26] MEDS ORDERED: FUROSEMIDE 20 MG TAB PO SCH ×2 (09:04→21:00)
[2019-01-26] MEDS: PANTOPRAZOLE 40 MG INJ VIAL IVP SCH (09:22)
[2019-01-26] MEDS: SENNA 8.6 MG TAB PO SCH ×2 (09:22→14:14)
[2019-01-26] MEDS: ACETAMINOPHEN 325 MG TAB PO PRN ×2 (09:26→15:29)
[2019-01-26 10:06] LABS: PROTHROMBIN TIME 14.3 secs (10.8-13.4)
--- NOTE | 2019-01-26 10:59 | NUR ---
RECEIVED ORDER FOR SN[facility] PLACEMENT, [facility] FOR IV ANTIBIOTICS AND P.T. FAXED INQUIRY TO [facility], [phone] PHONE [phone]
--- NOTE | 2019-01-26 11:13 | NUR ---
PT LYING IN BED SLEEPING AT THIS TIME. RESPIRATIONS EVEN AND UNLABORED. BED IN LOW POSITION. CALL LIGHT AT BEDSIDE. BED ALARM ON. WILL CONTINUE TO MONITOR.
--- NOTE | 2019-01-26 11:20 | NUR ---
BLOOD TRANSFUSION 1 UNIT STARTED AT THIS TIME. PT IN STABLE CONDITION.
[2019-01-26] MEDS ORDERED: ATRN INH (11:39)
[2019-01-26] MEDS ORDERED: PANT40EC PO (11:39)
[2019-01-26] MEDS ORDERED: SENN-74 PO (11:39)
[2019-01-26] MEDS ORDERED: PIPE50SO5 IV (11:39)
[2019-01-26] MEDS ORDERED: ACET-9525 PO (11:39)
[2019-01-26] MEDS ORDERED: Probiotic Screen MC (11:39)
[2019-01-26] MEDS ORDERED: ACET-1182 PO (11:39)
[2019-01-26] MEDS ORDERED: RAMI5CAP32 PO (11:41)
[2019-01-26 12:00] VITALS: BP 106/52
--- NOTE | 2019-01-26 12:05 | NUR ---
SARA KHANMEDICAL STENOGRAPHER DIRECTOR, RECEIVED A CALL FROM DARYL FROM [facility]. THEY HAS ACCEPTED THE PATIENT. PATIENT CAN GO TO ROOM 100B UNDER DR. BAPTISTE. DR. HENDERSON INFORMED. Addendum: 01/26/19 at 1210 by Elinor Barnes PHONE FOR [employer], [phone].
--- NOTE | 2019-01-26 13:11 | NUR ---
KATIE (DAUGHTER) CALLED TO [facility] ABOUT SENDING PT TO [facility]. MANAGED CARE LIAISON YOBANI WAS CALLED AND GIVEN PATIENTS DAUGHTER KATIE'S PHONE NUMBER TO SPEAK TO HER.
--- NOTE | 2019-01-26 14:04 | NUR ---
RECEIVED A CALL FROM ONEIDA KHAN STATING THAT THE PATIENT'S DAUGHTER, KATIE, HAS CONCERNS ABOUT [facility] AND WANTED TO SPEAK WITH ME. I SPOKE WITH DR. BRADLEY COVERING FOR DR. HENDERSON. SHE SAID TO TRY [facility], [facility] OR [facility]. I SPOKE WITH KATIE AND INFORMED HER THAT I WOULD TRY [place], AND [facility], THEN [facility]. I FAXED INQUIRY TO [facility] AND [facility]. KATIE CALLED ME BACK AND SHE SAID SHE WANTS [facility], FIRST, THEN [facility] 2ND.
--- NOTE | 2019-01-26 14:10 | NUR ---
BLOOD TRANSFUSION FINISHED, 1 UNIT AT THIS TIME. PT IN STABLE CONDITION.
--- NOTE | 2019-01-26 14:45 | NUR ---
RECEIVED A CALL FROM DAJUAN FROM [facility]. THEY HAVE ACCEPTED THE PATIENT. SHE WILL GO TO ROOM 216C UNDER DR. RIDER. THEY WILL ARRANGE TRANSPORT I GAVE DAJUAN THE PHONE NUMBER TO THE FLOOR. PHONE [phone] TO [facility]. I CALLED THE DAUGHTER KATIE AND INFORMED HER OF THE ROOM NUMBER, DOCTOR, AT [facility]. I SPOKE WITH RUDY AT [facility] AND CANCELED THE INQUIRY. I CALLED [facility] AND SPOKE WITH DARYL AND INFORMED HER THAT FAMILY CHOSE ANOTHER FACILITY.
[2019-01-26 16:11] LABS: BASOPHILS % (AUTO) 0.2 % (0.0-2.0); EOSINOPHILS # (AUTO) 0.1 K/uL (0-0.4); EOSINOPHILS % (AUTO) 0.9 % (0.0-4.0); HEMATOCRIT 23.3 % (36-48); HEMOGLOBIN 7.6 g/dL (12.0-16.0); LYMPHOCYTES % (AUTO) 6.6 % (20.5-51.1); MEAN CORPUSCULAR HEMOGLOBIN 29 pg (27-31); MEAN CORPUSCULAR HGB CONC 33 g/dL (33-37); MEAN CORPUSCULAR VOLUME 88.3 fL (80-94); MONOCYTES # (AUTO) 0.9 K/uL (0.8-1.0); MONOCYTES % (AUTO) 5.9 % (1.7-9.3); NEUTROPHILS # (AUTO) 13.1 K/uL (1.8-7.7); NEUTROPHILS % (AUTO) 86.4 % (42.2-75.2); PLATELET COUNT (AUTO) 139 K/uL (140-450); RED BLOOD CELL COUNT(AUTO) 2.63 MIL/uL (4.20-5.40); RED CELL DISTRIBUTION WIDTH 15.6 % (11.6-13.7); WHITE BLOOD COUNT (AUTO) 15.2 K/uL (4.8-10.8)
--- NOTE | 2019-01-26 16:50 | NUR ---
GAVE REPORT TO LISA Giraldo AT [facility] IN [place]. ALL QUESTIONS ANSWERED AT THIS TIME. LISA VERBALIZED UNDERSTANDING OF REPORT.
--- NOTE | 2019-01-26 17:06 | NUR ---
INFORMED PT DAUGHTER KATIE OF TRANSFER TO [facility] IN [place]. KATIE VERBALIZED UNDERSTANDING OF TRANSFER.
--- NOTE | 2019-01-26 17:45 | NUR ---
GAVE DISCHARGE INSTRUCTIONS, PT VERBALIZED UNDERSTANDING OF INSTRUCTIONS. IV SALINE LOCKED. ID BAND REMOVED. REPORT GIVEN TO TRANSPORT TEAM. TRANSPORT TEAM VERBALIZED UNDERSTANDING OF REPORT. ALL PAPERWORK GIVEN TO TRANSPORT TEAM. ALL QUESTIONS ANSWERED AT THIS TIME. PT PLACED ON GURNEY IN STABLE CONDITION.
== END 2019-01-26 17:50 | DRG 871 ==
LOC: MED 09:15 → MIC 11:43 → MTU 01-24 21:45
PROVIDERS: ADMIT General Practice; ATTEND General Practice
PROC: 30233K1 Transfusion of Nonautologous Frozen Plasma into Peripheral Vein, Percutaneous Approach (ICD-10-PCS; principal; 2019-01-22)
PROC: 30233N1 Transfusion of Nonautologous Red Blood Cells into Peripheral Vein, Percutaneous Approach (ICD-10-PCS; 2019-01-22)
PROC: 0D568ZZ Destruction of Stomach, Via Natural or Artificial Opening Endoscopic (ICD-10-PCS; 2019-01-23)
DX: A41.9 Sepsis, unspecified organism (principal); J69.0 Pneumonitis due to inhalation of food and vomit; N17.0 Acute kidney failure with tubular necrosis; E43 Unspecified severe protein-calorie malnutrition; J96.21 Acute and chronic respiratory failure with hypoxia; R57.1 Hypovolemic shock; N39.0 Urinary tract infection, site not specified; J44.0 Chronic obstructive pulmonary disease with (acute) lower respiratory infection; K62.5 Hemorrhage of anus and rectum; E87.1 Hypo-osmolality and hyponatremia; D62 Acute posthemorrhagic anemia; D68.69 Other thrombophilia; I31.3 Pericardial effusion (noninflammatory); R65.20 Severe sepsis without septic shock; Z68.32 Body mass index [BMI] 32.0-32.9, adult; D64.9 Anemia, unspecified; E03.9 Hypothyroidism, unspecified; I48.91 Unspecified atrial fibrillation; I50.9 Heart failure, unspecified; I11.0 Hypertensive heart disease with heart failure; M16.11 Unilateral primary osteoarthritis, right hip; T45.515A Adverse effect of anticoagulants, initial encounter; Z96.651 Presence of right artificial knee joint; K52.9 Noninfective gastroenteritis and colitis, unspecified; E87.6 Hypokalemia; E87.8 Other disorders of electrolyte and fluid balance, not elsewhere classified; E83.51 Hypocalcemia; E66.9 Obesity, unspecified; I78.1 Nevus, non-neoplastic; W18.30XA Fall on same level, unspecified, initial encounter; Y93.89 Activity, other specified; Z79.01 Long term (current) use of anticoagulants; Z85.3 Personal history of malignant neoplasm of breast; Z86.73 Personal history of transient ischemic attack (TIA), and cerebral infarction without residual deficits; Z87.891 Personal history of nicotine dependence; Z99.81 Dependence on supplemental oxygen; Z88.1 Allergy status to other antibiotic agents; Z88.8 Allergy status to other drugs, medicaments and biological substances; Z79.899 Other long term (current) drug therapy; Y92.89 Other specified places as the place of occurrence of the external cause; Y99.8 Other external cause status
CPT/HCPCS: 36415; 70450; 71045; 72170; 72192; 73501; 73562; 73610; 80048; 80053; 81001; 82607; 82728; 82746; 83036; 83540; 83605; 83690; 83735; 83880; 84100; 84439; 84443; 84484; 85025; 85045; 85610; 85730; 86886; 86900; 86901; 86920; 87040; 87081; 87086; 93005; 94640; 96361; 96365; 96368; 97110; 97116; 97530; 99291; C9113; J1200; J1610; J1940; J2250; J2354; J2543; J2916; J3010; J3430; J3490; J7030; J7042; J7060; J7644; P9016; P9017; Q0092; Q0163